=== PATIENT | male | born 1965 | race Two or more races ===

== ENCOUNTER 2022-01-15 14:33 | Inpatient (IN) | payer MEDICAID, OTHER ==
[~2022-01-15] VITALS: Ht 177.8 cm; Wt 67.9 kg
[2022-01-15] MEDS ORDERED: SODIUM CHLORIDE 0.9% 1,000 ML IVB ONE (14:45)
[2022-01-15] MEDS ORDERED: ONDANSETRON HCL 4 MG/2 ML VIAL IV ONE (14:45)
[2022-01-15] MEDS ORDERED: MORPHINE SULFATE 4 MG/ML SYR/VIAL IV ONE (14:45)
[2022-01-15] MEDS ORDERED: PANTOPRAZOLE 40 MG/10 ML VIAL INJ IV ONE (14:45)
[2022-01-15 15:12] LABS: Eosinophils # (auto) 0.1 10 ^3/uL (0-0.8); Hemoglobin 8.7 g/dL (13.5-17.5)
[2022-01-15 15:23] LABS: Lymphocytes # (auto) 1.5 10 ^3/uL (0.4-5.4); Monocytes # (auto) 0.7 10 ^3/uL (0-1.3); Monocytes % (auto) 13.6 % (0.0-12.0); Red Blood Cells 3.56 10^6/uL (4.5-5.90)
[2022-01-15 15:25] LABS: Basophils # (auto) 0 10 ^3/uL (0-0.2); Basophils % (auto) 0.8 % (0.0-2.0); Eosinophils % (auto) 1.5 % (0.0-7.0); Lymphocytes % (auto) 30.2 % (10.0-50.0); Mean Corpuscular Hemoglobin 24.4 pg (28.0-32.0); Mean Corpuscular Volume 81.3 fL (80.0-100.0); Neutrophils # (auto) 2.7 10 ^3/uL (1.6-8.6); Neutrophils % (auto) 53.9 % (37.0-80.0); Nucleated Red Blood Cells % 0.9 %
[2022-01-15 15:27] LABS: Red Cell Distribution Width 24.9 % (11.8-14.3)
[2022-01-15 15:32] LABS: INR 0.97 (0.9-1.15); Partial Thromboplastin Time 25.1 sec (24.6-33.4)
[2022-01-15 15:34] LABS: Albumin 2.9 g/dL (3.4-5.0); Calcium 8.2 mg/dL (8.5-10.1); Potassium 3.8 mmol/L (3.5-5.1)
[2022-01-15 15:37] LABS: BUN/Creatinine Ratio 11.8; Bilirubin, Total 0.1 mg/dL (0.2-1.0); Total Protein 7.2 g/dL (6.4-8.2)
[2022-01-15] MEDS ORDERED: LORazepam 2MG/ML-1ML VIAL IM PRN (18:45)
[2022-01-15] MEDS ORDERED: DEXTROSE (50%) 50ML SYRG IV PRN (18:45)
[2022-01-15] MEDS ORDERED: HYDROcodone-ACET 5/325MG TAB PO PRN (18:45)
[2022-01-15] MEDS ORDERED: hydrALAZINE HCL 20 MG/ML VL IV PRN (18:45)
[2022-01-15] MEDS ORDERED: DOCUSATE SOD 100 MG CAP PO PRN (18:45)
[2022-01-15] MEDS: SODIUM CHLORIDE 0.9% 1,000 ML IV SCH ×2 (20:08→23:06)
[2022-01-15] MEDS: InsuLIN REG 1unit/0.01ml Soln (100units/ml) SC SCH (22:00)
[2022-01-15] MEDS: ACCU-CHEK COMFORT CURVE STRIP VI SCH (22:00)
[2022-01-15] MEDS: MORPHINE SULFATE INJ 2 MG/ml SYRG IV PRN (23:01)
[2022-01-16] MEDS: MORPHINE SULFATE INJ 2 MG/ml SYRG IV PRN ×6 (03:11→23:32)
[2022-01-16] MEDS ORDERED: SERT-160 PO (03:35)
[2022-01-16] MEDS ORDERED: GABA800T97 PO (03:35)
[2022-01-16] MEDS ORDERED: TAMS0.4C36 PO (03:35)
[2022-01-16] MEDS ORDERED: GLIP10TA9 PO (03:35)
[2022-01-16] MEDS ORDERED: MIDO5TAB3 PO (03:35)
[2022-01-16] MEDS ORDERED: SUCR1SUS10 PO (03:35)
[2022-01-16] MEDS ORDERED: PANT40T PO (03:35)
[2022-01-16] MEDS ORDERED: BUSP15TA90 PO (03:35)
[2022-01-16] MEDS ORDERED: TRAZ300T13 (03:35)
[2022-01-16] MEDS ORDERED: MAGN400T6 PO (03:35)
[2022-01-16] MEDS ORDERED: LISI-716 PO (03:35)
[2022-01-16] MEDS ORDERED: QUET1TAB11 PO (03:35)
[2022-01-16] MEDS ORDERED: PANC12002 ×2 (03:35)
[2022-01-16 05:00] VITALS: BP 154/106
[2022-01-16] MEDS: ONDANSETRON HCL 4 MG/2 ML VIAL IV PRN (05:50)
[2022-01-16] MEDS: InsuLIN REG 1unit/0.01ml Soln (100units/ml) SC SCH ×4 (07:00→22:00)
[2022-01-16] MEDS: ACCU-CHEK COMFORT CURVE STRIP VI SCH ×4 (07:11→22:00)
[2022-01-16 08:57] LABS: Basophils # (auto) 0.1 10 ^3/uL (0-0.2); Eosinophils # (auto) 0.1 10 ^3/uL (0-0.8); Hemoglobin 8.9 g/dL (13.5-17.5); Nucleated Red Blood Cells % 0.9 %; White Blood Cell 6.4 10^3/uL (4.4-10.8)
[2022-01-16 08:58] LABS: Basophils % (auto) 1.2 % (0.0-2.0); Eosinophils % (auto) 1.3 % (0.0-7.0); Hematocrit 28.7 % (41.0-53.0); Lymphocytes % (auto) 15.6 % (10.0-50.0); Mean Corpuscular Hemoglobin 24.6 pg (28.0-32.0); Mean Corpuscular Volume 79.4 fL (80.0-100.0); Monocytes % (auto) 15.6 % (0.0-12.0); Neutrophils # (auto) 4.3 10 ^3/uL (1.6-8.6); Neutrophils % (auto) 66.3 % (37.0-80.0); Red Blood Cells 3.61 10^6/uL (4.5-5.90)
[2022-01-16 09:00] VITALS: BP 143/90
[2022-01-16] MEDS: ENOXAPARIN SOD 40 MG/0.4 ML SYRINGE SC SCH (09:06)
[2022-01-16 09:22] LABS: Potassium 3.2 mmol/L (3.5-5.1)
[2022-01-16 09:36] LABS: Albumin 2.9 g/dL (3.4-5.0); BUN/Creatinine Ratio 11.5; Bilirubin, Total 0.5 mg/dL (0.2-1.0); Calcium 7.7 mg/dL (8.5-10.1); Total Protein 7.5 g/dL (6.4-8.2)
[2022-01-16 09:40] LABS: Red Cell Distribution Width 24.5 % (11.8-14.3)
[2022-01-16] MEDS: SODIUM CHLORIDE 0.9% 1,000 ML IV SCH (11:43)
[2022-01-16 13:00] VITALS: BP 157/99
[2022-01-16] MEDS ORDERED: LORazepam 2MG/ML-1ML VIAL IV PRN (15:00)
[2022-01-16] MEDS: POTASSIUM CHL 20MEQ/100ML 100 ML IV SCH ×2 (15:39→18:15)
[2022-01-16 16:53] VITALS: BP 149/95
[2022-01-16 22:00] VITALS: BP 143/95
[2022-01-17] MEDS: MORPHINE SULFATE INJ 2 MG/ml SYRG IV PRN ×6 (00:46→23:52)
[2022-01-17 05:00] VITALS: BP 126/91
[2022-01-17] MEDS: ACCU-CHEK COMFORT CURVE STRIP VI SCH ×4 (06:52→22:40)
[2022-01-17] MEDS: InsuLIN REG 1unit/0.01ml Soln (100units/ml) SC SCH ×4 (06:52→22:00)
[2022-01-17 07:26] LABS: Basophils # (auto) 0.1 10 ^3/uL (0-0.2); Eosinophils # (auto) 0.1 10 ^3/uL (0-0.8); Hemoglobin 8.8 g/dL (13.5-17.5); Lymphocytes # (auto) 1.5 10 ^3/uL (0.4-5.4); Monocytes # (auto) 0.9 10 ^3/uL (0-1.3)
[2022-01-17 07:30] LABS: Basophils % (auto) 1.7 % (0.0-2.0); Eosinophils % (auto) 2.3 % (0.0-7.0); Hematocrit 28.2 % (41.0-53.0); Lymphocytes % (auto) 29.5 % (10.0-50.0); Mean Corpuscular Hemoglobin 24.5 pg (28.0-32.0); Mean Corpuscular Hgb Conc. 31.2 g/dL (32.0-36.0); Mean Corpuscular Volume 78.5 fL (80.0-100.0); Monocytes % (auto) 17.1 % (0.0-12.0); Neutrophils # (auto) 2.5 10 ^3/uL (1.6-8.6); Neutrophils % (auto) 49.4 % (37.0-80.0); Nucleated Red Blood Cells % 0.9 %; Red Blood Cells 3.59 10^6/uL (4.5-5.90); White Blood Cell 5.1 10^3/uL (4.4-10.8)
[2022-01-17 07:36] LABS: Potassium 3.5 mmol/L (3.5-5.1)
[2022-01-17 07:46] LABS: BUN/Creatinine Ratio 15.4
[2022-01-17 07:47] LABS: Calcium 7.2 mg/dL (8.5-10.1); Phosphorus 2.7 mg/dL (2.5-4.90)
[2022-01-17 08:00] LABS: Red Cell Distribution Width 24.2 % (11.8-14.3)
[2022-01-17 08:05] LABS: Magnesium 0.8 mg/dL (1.6-2.6)
[2022-01-17 09:00] VITALS: BP 140/86
[2022-01-17] MEDS: ENOXAPARIN SOD 40 MG/0.4 ML SYRINGE SC SCH (10:00)
[2022-01-17] MEDS: PANTOPRAZOLE 40 MG/10 ML VIAL INJ IV SCH ×2 (11:51→23:59)
[2022-01-17 13:00] VITALS: BP 132/86
[2022-01-17] MEDS: FOLIC ACID 1 MG, MULTIPLE VITAMIN 10 ML, MAGNESIUM SULF SDV 50% 8 MEQ, THIAMINE INJ 100... INJ SCH ×5 (13:45)
[2022-01-17] MEDS: MAGNESIUM SULFATE 1GM/100ML 100 ML IV SCH ×4 (16:00→19:06)
[2022-01-17 17:00] VITALS: BP 132/84
[2022-01-17 22:00] VITALS: BP 116/75
[2022-01-18] MEDS: MAGNESIUM SULFATE 1GM/100ML 100 ML IV SCH ×3 (01:45→04:07)
[2022-01-18] MEDS: MORPHINE SULFATE INJ 2 MG/ml SYRG IV PRN ×3 (04:14→20:23)
[2022-01-18 05:02] VITALS: BP 121/81
[2022-01-18] MEDS: InsuLIN REG 1unit/0.01ml Soln (100units/ml) SC SCH ×4 (06:52→21:27)
[2022-01-18] MEDS: ACCU-CHEK COMFORT CURVE STRIP VI SCH ×4 (06:53→21:28)
[2022-01-18 09:23] VITALS: BP 101/68
[2022-01-18] MEDS: PANTOPRAZOLE 40 MG/10 ML VIAL INJ IV SCH ×2 (10:52→21:27)
[2022-01-18] MEDS: ENOXAPARIN SOD 40 MG/0.4 ML SYRINGE SC SCH (10:52)
[2022-01-18 12:16] LABS: Calcium 7.6 mg/dL (8.5-10.1); Magnesium 1.9 mg/dL (1.6-2.6); Potassium 3.5 mmol/L (3.5-5.1)
[2022-01-18 12:18] LABS: BUN/Creatinine Ratio 11.6
[2022-01-18] MEDS: FOLIC ACID 1 MG, MULTIPLE VITAMIN 10 ML, MAGNESIUM SULF SDV 50% 8 MEQ, THIAMINE INJ 100... INJ SCH ×5 (12:45)
[2022-01-18 17:18] VITALS: BP 128/81
[2022-01-18 22:00] VITALS: BP 119/82
[2022-01-19] MEDS: MORPHINE SULFATE INJ 2 MG/ml SYRG IV PRN ×6 (00:36→22:33)
[2022-01-19 05:00] VITALS: BP 134/90
[2022-01-19 06:03] LABS: Basophils # (auto) 0.1 10 ^3/uL (0-0.2); Basophils % (auto) 1.4 % (0.0-2.0); Eosinophils # (auto) 0.1 10 ^3/uL (0-0.8); Nucleated Red Blood Cells % 0.2 %
[2022-01-19 06:05] LABS: Eosinophils % (auto) 2.1 % (0.0-7.0); Hemoglobin 9.3 g/dL (13.5-17.5); Lymphocytes # (auto) 1.2 10 ^3/uL (0.4-5.4); Lymphocytes % (auto) 19.3 % (10.0-50.0); Mean Corpuscular Hemoglobin 24.4 pg (28.0-32.0); Mean Corpuscular Hgb Conc. 31.1 g/dL (32.0-36.0); Mean Corpuscular Volume 78.4 fL (80.0-100.0); Monocytes # (auto) 1.1 10 ^3/uL (0-1.3); Monocytes % (auto) 17.7 % (0.0-12.0); Neutrophils # (auto) 3.8 10 ^3/uL (1.6-8.6); Neutrophils % (auto) 59.5 % (37.0-80.0); Red Blood Cells 3.82 10^6/uL (4.5-5.90); White Blood Cell 6.5 10^3/uL (4.4-10.8)
[2022-01-19] MEDS: InsuLIN REG 1unit/0.01ml Soln (100units/ml) SC SCH ×4 (06:22→22:00)
[2022-01-19] MEDS: ACCU-CHEK COMFORT CURVE STRIP VI SCH ×4 (06:22→22:23)
[2022-01-19 06:40] LABS: Red Cell Distribution Width 23.9 % (11.8-14.3)
[2022-01-19 09:00] VITALS: BP 143/89
[2022-01-19] MEDS: PANTOPRAZOLE 40 MG/10 ML VIAL INJ IV SCH ×2 (10:33→22:22)
[2022-01-19] MEDS: ENOXAPARIN SOD 40 MG/0.4 ML SYRINGE SC SCH (10:33)
[2022-01-19] MEDS ORDERED: GASTROGRAFIN 30 ML SOL ONE (11:24)
[2022-01-19] MEDS ORDERED: GASTROGRAFIN 120 ML SOL ONE (11:31)
[2022-01-19 13:00] VITALS: BP 139/82
[2022-01-19] MEDS: FOLIC ACID 1 MG, MULTIPLE VITAMIN 10 ML, MAGNESIUM SULF SDV 50% 8 MEQ, THIAMINE INJ 100... INJ SCH ×5 (13:43)
[2022-01-19] MEDS: ONDANSETRON HCL 4 MG/2 ML VIAL IV PRN (20:11)
[2022-01-19 22:00] VITALS: BP 119/84
[2022-01-20] MEDS: MORPHINE SULFATE INJ 2 MG/ml SYRG IV PRN ×4 (02:23→15:23)
[2022-01-20 05:00] VITALS: BP 119/83
[2022-01-20] MEDS: InsuLIN REG 1unit/0.01ml Soln (100units/ml) SC SCH ×3 (06:32→17:31)
[2022-01-20] MEDS: ACCU-CHEK COMFORT CURVE STRIP VI SCH ×3 (06:33→17:28)
[2022-01-20 09:00] VITALS: BP 116/82
[2022-01-20] MEDS: PANTOPRAZOLE 40 MG/10 ML VIAL INJ IV SCH (10:13)
[2022-01-20] MEDS: ENOXAPARIN SOD 40 MG/0.4 ML SYRINGE SC SCH (10:14)
[2022-01-20] MEDS: FOLIC ACID 1 MG, MULTIPLE VITAMIN 10 ML, MAGNESIUM SULF SDV 50% 8 MEQ, THIAMINE INJ 100... INJ SCH ×5 (12:00)
[2022-01-20 12:29] LABS: BUN/Creatinine Ratio 7.5; Calcium 8.5 mg/dL (8.5-10.1); Magnesium 1.6 mg/dL (1.6-2.6)
[2022-01-20 13:00] VITALS: BP 117/81
[2022-01-20 17:00] VITALS: BP 149/90
[2022-01-20 17:37] VITALS: BP 149/90
== END 2022-01-20 20:00 | disposition home health service (06) | DRG 247 ==
LOC: EDBD 14:33 → ER 14:33 → OVERFLOW 18:38 → WEST WING 22:58
PROVIDERS: ADMIT Internal Medicine; ATTEND Internal Medicine
PROC: 0D9670Z Drainage of Stomach with Drainage Device, Via Natural or Artificial Opening (ICD-10-PCS; principal; 2022-01-17)
DX: K56.600 Partial intestinal obstruction, unspecified as to cause (principal); K85.90 Acute pancreatitis without necrosis or infection, unspecified; E88.09 Other disorders of plasma-protein metabolism, not elsewhere classified; D64.9 Anemia, unspecified; E11.65 Type 2 diabetes mellitus with hyperglycemia; E78.5 Hyperlipidemia, unspecified; E87.6 Hypokalemia; Z20.822 Contact with and (suspected) exposure to COVID-19; K86.1 Other chronic pancreatitis; I10 Essential (primary) hypertension; Y90.8 Blood alcohol level of 240 mg/100 ml or more; F10.129 Alcohol abuse with intoxication, unspecified; Z95.5 Presence of coronary angioplasty implant and graft; Z80.0 Family history of malignant neoplasm of digestive organs; Z90.81 Acquired absence of spleen; Z88.8 Allergy status to other drugs, medicaments and biological substances
CPT/HCPCS: 36415; 74176; 74250; 80048; 80053; 80320; 82140; 82150; 82962; 83690; 83735; 84100; 85025; 85610; 85730; 93005; 96361; 96374; 96375; C9113; G0378; J1815; J2405; J3480

== ENCOUNTER → 2023-09-23 | Outpatient (CLI) | payer MEDICAID ==
[~2023-09-23] MED LIST: BUSP15TA90 PO; GABA800T97 PO; GLIP10TA9 PO; LISI10TA34 PO; MAGN400T6 PO; MIDO5TAB4 PO; PANC12002; PANT40T PO; QUET1TAB11 PO; SERT-160 PO; SUCR1SUS26 PO; TAMS0.4C36 PO; TRAZ300T13
[2023-09-23 12:41] LABS: Urine Bacteria None Seen /hpf (None Seen)
[2023-09-23 12:51] LABS: Urine Blood Negative /uL (Negative); Urine Clarity Clear (Clear); Urine Color Yellow (Yellow); Urine Protein, UAD Negative (Negative); Urine Specific Gravity 1.018 (1.001-1.035); Urine Urobilinogen Normal (Negative); Urine WBC 5 /hpf (0 - 3); Urine pH 7.5 (5.0-9.0)
== END | disposition home or self-care (01) ==
LOC: LAB 12:28
PROVIDERS: ATTEND Urology
DX: N39.0 Urinary tract infection, site not specified (principal)
CPT/HCPCS: 81001; 87086